=== PATIENT | female | born 1960 | race Hispanic/Latino ===

== ENCOUNTER 2018-06-07 00:34 | Emergency (ER) | payer OTHER ==
[2018-06-07] MEDS ORDERED: KETOROLAC TROMETHAMINE 60 MG/2 ML VIAL ONE (00:45)
[2018-06-07] MEDS ORDERED: ORPHENADRINE CITRATE 30 MG/ML ML ONE (00:45)
== END 2018-06-07 01:25 | disposition home or self-care (01) ==
LOC: EDH 00:34
DX: S33.5XXA Sprain of ligaments of lumbar spine, initial encounter (principal); I10 Essential (primary) hypertension; E03.9 Hypothyroidism, unspecified; E11.9 Type 2 diabetes mellitus without complications; X50.0XXA Overexertion from strenuous movement or load, initial encounter; Y93.89 Activity, other specified; Y92.89 Other specified places as the place of occurrence of the external cause; Y99.8 Other external cause status
CPT/HCPCS: 96372 ×2; 99283; J1885; J2360

== ENCOUNTER → 2023-12-11 | Outpatient (CLI) | payer BC, MEDICARE | END | disposition home or self-care (01) | LOC: RAH 09:47 | PROVIDERS: ATTEND Internal Medicine | DX: M50.123 Cervical disc disorder at C6-C7 level with radiculopathy (principal); M50.121 Cervical disc disorder at C4-C5 level with radiculopathy; M50.122 Cervical disc disorder at C5-C6 level with radiculopathy; T81.9XXD Unspecified complication of procedure, subsequent encounter; M48.02 Spinal stenosis, cervical region; X58.XXXD Exposure to other specified factors, subsequent encounter | CPT/HCPCS: 72141 ==